=== PATIENT | female | born 1930 | race Caucasian/White ===

== ENCOUNTER 2016-11-01 11:05 | Emergency (ER) | payer MEDICARE, OTHER ==
[2016-11-01 12:06] LABS: BASO % 0.3 % (0.1-1.2); EOS # 0.1 10_X3_uL (0.0-0.4); EOS % 1.3 % (0.7-5.8); GRAN # 5.9 10_X3_uL (1.6-6.1); GRAN % 77.7 % (34.0-71.1); HEMATOCRIT 40.8 % (34-45); HEMOGLOBIN 13.4 g/dL (11.2-15.7); LYMPH # 1.2 10_X3_uL (1.2-3.7); LYMPH % 15.3 % (19.3-51.7); MEAN CORPUSCULAR HEMOGLOBIN 29.9 pg (27.0-33.0); MEAN CORPUSCULAR HGB CONC 32.8 g/dL (32.0-36.0); MEAN CORPUSCULAR VOLUME 91.1 fL (79-95); MEAN PLATELET VOLUME 10.6 fl (7.5-11.5); MONO # 0.4 10_X3_uL (0.2-0.9); MONO % 5.4 % (4.7-12.5); PLATELET COUNT 286 x10_3/uL (182-369); RED BLOOD COUNT 4.48 x10_6/uL (3.9-5.2); RED CELL DISTRIBUTION WIDTH 14.6 % (11.7-14.4); WHITE BLOOD COUNT 7.5 x10_3/uL (4.0-10.0)
[2016-11-01 12:26] LABS: ALBUMIN 4.1 gm/dL (3.4-5.0); ALKALINE PHOSPHATASE 86 U/L (50-136); ALT/SGPT 12 U/L (3.5-33.9); AST/SGOT 13 U/L (7.04-26.96); BILIRUBIN,TOTAL 0.49 mg/dL (0.0-1.0); BLOOD UREA NITROGEN 20 mg/dL (7-18); CALCIUM 9.7 mg/dL (8.7-10.7); CARBON DIOXIDE 24 mmol/L (21-32); CREATININE 0.9 mg/dL (0.6-1.3); GLUCOSE,RANDOM 221 mg/dL (70-99); POTASSIUM 5.5 mmol/L (3.5-5.1); SODIUM 138 mmol/L (136-145); TOTAL PROTEIN 6.5 gm/dL (6.4-8.2)
[2016-11-01 12:48] LABS: URINE BACTERIA 1+ (NONE SEEN); URINE BILIRUBIN NEGATIVE (NEGATIVE); URINE BLOOD TRACE (NEGATIVE); URINE GLUCOSE (UA) 250 mg/dL (NORMAL); URINE KETONE NEGATIVE (NEGATIVE); URINE LEUKOCYTE ESTERASE 2+ (NEGATIVE); URINE NITRATE POSITIVE (NEGATIVE); URINE PROTEIN 1+ (NEGATIVE); URINE SQUAMOUS EPITHELIAL CELL 0-10 /[HPF] (NONE SEEN); UROBILINOGEN NORMAL mg/dL (<1.0)
== END 2016-11-01 13:35 | disposition home or self-care (01) ==
LOC: ER 11:05
PROVIDERS: Emergency Medicine
DX: N30.90 Cystitis, unspecified without hematuria (principal); I48.1 Persistent atrial fibrillation; I10 Essential (primary) hypertension; Z85.038 Personal history of other malignant neoplasm of large intestine; K57.90 Diverticulosis of intestine, part unspecified, without perforation or abscess without bleeding; Z79.899 Other long term (current) drug therapy
CPT/HCPCS: 36415; 80053; 81001; 85025; 87086; 99070; 99283; 99284-25